=== PATIENT | male | born 1960 | race African-American/Black ===

== ENCOUNTER 2017-08-23 22:26 | Emergency (ER) | payer MEDICAID, OTHER ==
[~2017-08-23] VITALS: Ht 198.1 cm; Wt 113.4 kg
[2017-08-23] MEDS ORDERED: FLUORESCEIN SODIUM 1 MG OPHTHALMIC STRIP OP ONE (22:27)
[2017-08-23] MEDS ORDERED: BALANCED SALT IRRIG SOLN 15 ML IO ONE (22:27)
[2017-08-23] MEDS ORDERED: TETRACAINE HCL 0.5% OPHTHALMIC DROPS 15 ML OP ONE (22:27)
[2017-08-23 22:34] VITALS: BP_SYST 149
[2017-08-24 02:04] VITALS: BP_SYST 147
== END 2017-08-24 02:04 | disposition home or self-care (01) ==
LOC: SED 22:26
DX: H10.9 Unspecified conjunctivitis (principal); I10 Essential (primary) hypertension; Z88.2 Allergy status to sulfonamides
CPT/HCPCS: 99283

== ENCOUNTER 2019-01-07 23:38 | Emergency (ER) | payer MEDICAID ==
[~2019-01-07] VITALS: Ht 198.1 cm; Wt 104.3 kg
== END 2019-01-08 01:17 | disposition home or self-care (01) ==
LOC: SED 23:38
DX: B86 Scabies (principal); I10 Essential (primary) hypertension; Z86.79 Personal history of other diseases of the circulatory system; Z88.2 Allergy status to sulfonamides; Z88.8 Allergy status to other drugs, medicaments and biological substances
CPT/HCPCS: 99282

== ENCOUNTER 2019-07-02 21:25 | Emergency (ER) | payer MEDICAID ==
[~2019-07-02] VITALS: Ht 198.1 cm; Wt 104.3 kg
[2019-07-02 21:30] VITALS: BP_SYST 145
[2019-07-03] MEDS ORDERED: KETOROLAC TROMETHAMINE 30 MG VIAL IVP ONE (00:15)
[2019-07-03] MEDS ORDERED: CEFUROXIME AXETIL 250 MG TABLET PO ONE (00:15)
[2019-07-03] MEDS ORDERED: NACL 0.9% 1,000 ML IV ONE (00:15)
[2019-07-03 01:45] VITALS: BP_SYST 145
== END 2019-07-03 01:45 | disposition home or self-care (01) ==
LOC: SED 21:25
DX: J32.9 Chronic sinusitis, unspecified (principal); R51 Headache; I10 Essential (primary) hypertension; F41.9 Anxiety disorder, unspecified; M19.90 Unspecified osteoarthritis, unspecified site; Z86.79 Personal history of other diseases of the circulatory system; Z88.2 Allergy status to sulfonamides; Z88.8 Allergy status to other drugs, medicaments and biological substances
CPT/HCPCS: 96374; 99283; J1885; J7030

== ENCOUNTER 2022-03-31 22:28 | Emergency (ER) | payer MEDICAID ==
[~2022-03-31] VITALS: Ht 198.1 cm; Wt 117.9 kg
--- NOTE | 2022-03-31 22:45 | NUR ---
Pt to ED at this time with SAMEER w/ c/o HELMS 02/24. Pt states he has Pre-DM as well as HTN and plantar fasciitis. SAMEER remains at patient's side. Respirations even and unlabored. Normal skin color for ethicity. Pt AOx4. GCS 15. Denies chest pain.
[2022-03-31 22:47] VITALS: BP_SYST 164
[2022-03-31] MEDS ORDERED: IBUPROFEN 800 MG TABLET PO ONE (23:00)
[2022-03-31] MEDS ORDERED: LISINOPRIL 10 MG TABLET (PRINIVIL) PO ONE (23:00)
[2022-03-31 23:30] VITALS: BP_SYST 161
--- NOTE | 2022-03-31 23:45 | NUR ---
MD Shukla speaking with patient at this time
--- NOTE | 2022-04-01 03:39 | NUR ---
Patient given written and verbal discharge instructions and verbalizes understanding. ER MD discussed with patient the results and treatment provided. Patient in stable condition. ID arm band removed. Patient educated on pain management and to follow up with PMD. Pain Scale 0/10. Opportunity for questions provided and answered.
== END 2022-04-01 01:30 ==
LOC: SED 22:28
DX: R51.9 Headache, unspecified (principal); I10 Essential (primary) hypertension; Z88.2 Allergy status to sulfonamides; Z79.899 Other long term (current) drug therapy
CPT/HCPCS: 99283

== ENCOUNTER 2022-12-27 15:37 | Emergency (ER) | payer MEDICAID ==
[~2022-12-27] VITALS: Ht 198.1 cm; Wt 127.0 kg
[2022-12-27 16:05] VITALS: BP_SYST 158
--- NOTE | 2022-12-27 16:10 | NUR ---
Patient triaged and placed in waiting room. VSS and patient appears in no acute distress at this time. Accompanied by , awaiting available bed, and MD notified of need for MSE.
--- NOTE | 2022-12-27 16:17 | NUR ---
PT STATES LEFT MIDDLE FINGER SWELLING, PAINFUL, AND H/O MRSA. PT STATES HE THINKS IT IS MRSA AGAIN. PT STATES THAT HE KEEPS HIS HANDS CLEAN.
--- NOTE | 2022-12-27 18:33 | NUR ---
DR MAYES OUT TO TRIAGE ROOM FOR EVALUATION
[2022-12-27] MEDS ORDERED: LIDOCAINE 1% 10 MG/ML, 20 ML MDV INJ ONE (18:45)
--- NOTE | 2022-12-27 18:50 | NUR ---
Patient to ER bed 04 to gown for evaluation. Side rails up.
[2022-12-27] MEDS ORDERED: IBUP-1969 PO (19:04)
[2022-12-27] MEDS ORDERED: CLIN-142 PO (19:04)
--- NOTE | 2022-12-27 19:16 | NUR ---
DR NUNES AT BEDSIDE FOR PROCEDURE
[2022-12-27 19:26] VITALS: BP_SYST 125
--- NOTE | 2022-12-27 19:26 | NUR ---
PT MEDICIALLY CLEARED FOR D/C. D/C INSTRUCTIONS GIVEN TO PT. PT TO FOLLOW-UP WITH PCP WITHIN 1-3 DAYS AND TO RETURN TO ED FOR WROSEINING S/S. PT VERBALIZED UNDERSTANDING. PT IS AAX04, NAD, VSS, WRIST BAND REMOVED, PT AMBULATES WITH STEADY GAIT. PT LEFT ED WITH ALL BELONGINGS.
== END 2022-12-27 19:26 | disposition home or self-care (01) ==
LOC: SED 15:37
DX: L03.012 Cellulitis of left finger (principal); M79.645 Pain in left finger(s); I10 Essential (primary) hypertension; Z88.2 Allergy status to sulfonamides; Z79.899 Other long term (current) drug therapy
CPT/HCPCS: 10060; 99282; J2001

== ENCOUNTER 2023-05-28 00:06 | Emergency (ER) | payer MEDICAID ==
[~2023-05-28] VITALS: Ht 198.1 cm; Wt 131.5 kg
[~2023-05-28 00:06] MED LIST: CLIN-142 PO; IBUP-1969 PO
[2023-05-28 00:16] VITALS: BP_SYST 156; PULSE 90; RESP 18; TEMP 97.8; O2SAT 90
[2023-05-28] MEDS ORDERED: fentaNYL CITRATE/PF 100 MCG/2 ML AMP IVP ONE (00:30)
[2023-05-28 00:46] LABS: BASOPHILS # (AUTO) 0.1 K/uL (0.0-0.2); BASOPHILS % (AUTO) 1.3 % (0.0-2.0); EOSINOPHILS # (AUTO) 0.3 K/uL (0.0-0.4); EOSINOPHILS % (AUTO) 4.1 % (0.0-4.0); HEMATOCRIT 43.2 % (36-54); HEMOGLOBIN 14.2 g/dL (14.0-18.0); LYMPHOCYTES # (AUTO) 1.7 K/uL (1.0-5.5); LYMPHOCYTES % (AUTO) 27.9 % (20.5-51.5); MEAN CORPUSCULAR HEMOGLOBIN 30 pg (27-31); MEAN CORPUSCULAR HGB CONC 33 % (32-36); MEAN CORPUSCULAR VOLUME 92 fL (79.0-98.0); MONOCYTES # (AUTO) 0.5 K/uL (0.0-1.0); MONOCYTES % (AUTO) 7.3 % (1.7-9.3); NEUTROPHILS # (AUTO) 3.7 K/uL (1.8-7.7); NEUTROPHILS % (AUTO) 59.4 % (40.0-70.0); PLATELET COUNT (AUTO) 199 K/uL (130-430); RED BLOOD CELL COUNT(AUTO) 4.69 MIL/uL (4.2-6.2); RED CELL DISTRIBUTION WIDTH 13.5 % (9.0-15.0); WHITE BLOOD COUNT (AUTO) 6.3 K/uL (4.8-10.8)
[2023-05-28 00:52] LABS: ANION GAP 7 (5-15); CALCIUM 9.1 mg/dL (8.4-11.0); CARBON DIOXIDE 29 mmol/L (23-29); CHLORIDE 106 mmol/L (98-107); CREATININE 1.34 mg/dL (0.55-1.30); GFR AFRICAN AMERICAN 69 mL/min (>90); GLUCOSE 108 mg/dL (74-106); POTASSIUM 4.3 mmol/L (3.5-5.1); SODIUM SERUM 142 mmol/L (136-145); UREA NITROGEN, BLOOD 12 mg/dL (8-21)
[2023-05-28 00:55] LABS: PROTHROMBIN TIME 10.6 SECS (9.5-12.5)
[2023-05-28 00:56] LABS: ALANINE AMINOTRANSFERASE 20 U/L (12-78); ALBUMIN 3.7 g/dL (3.4-4.8); ASPARTATE AMINOTRANSFERASE 19 U/L (10-37); LIPASE 37 U/L (73-393); TOTAL BILIRUBIN 0.6 mg/dL (0.0-1.0)
[2023-05-28 01:12] LABS: ALCOHOL, BLOOD < 3 mg/dL (<10); GFR NON AFRICAN-AMERICAN 57 mL/min (>90)
[2023-05-28] MEDS ORDERED: BACL10TA PO (03:44)
[2023-05-28] MEDS ORDERED: IBUP-2018 PO (03:44)
[2023-05-28] MEDS ORDERED: HYDR-3927 PO (03:44)
[2023-05-28 04:02] VITALS: BP_SYST 149; PULSE 105; RESP 22; TEMP 98.8; O2SAT 95
== END 2023-05-28 04:06 | disposition home or self-care (01) ==
LOC: SED 00:06
DX: S39.012A Strain of muscle, fascia and tendon of lower back, initial encounter (principal); M25.522 Pain in left elbow; R07.9 Chest pain, unspecified; I10 Essential (primary) hypertension; Z88.1 Allergy status to other antibiotic agents; Z88.2 Allergy status to sulfonamides; Z79.899 Other long term (current) drug therapy; V89.2XXA Person injured in unspecified motor-vehicle accident, traffic, initial encounter; Y93.89 Activity, other specified; Y92.89 Other specified places as the place of occurrence of the external cause; Y99.8 Other external cause status
CPT/HCPCS: 99285; 71260; 96374; 71045; 80053; 83690; 85025; 85610; 85730; 36415; 73070; 76376; 74177; G0482; J3010; Q9967